=== PATIENT | female | born 2000 | race Caucasian/White ===

== ENCOUNTER 2019-02-26 21:43 | Emergency (ER) | payer BC, OTHER ==
[~2019-02-26] VITALS: Ht 167.7 cm; Wt 68.2 kg
--- NOTE | 2019-02-26 22:27 | ED Abdominal Pain ---
General Chief Complaint: Abdominal/GI Problems Stated Complaint: CONSTIPATION Nursing Triage Note: Pt amb to room #5 with c/o lower abd cramping, constipation, nausea, and chills. Pt reports she has not passed adequate bowel movement since 02/23/19. Pt reports to be taking stool softners with no relief. Source of Information: Patient Exam Limitations: No Limitations History of Present Illness Date Seen by Provider: Feb 26, 2019 Time Seen by Provider: 22:10 Initial Comments Patient presents to ER by private conveyance with 1-2 days of progressively worsening cramping, colicky abdominal pain all over. She's not having any dysuria fever or nausea or diarrhea. She does have constipation with her last bowel movement being about 3 days ago. She has chronic constipation and is felt the need to go for the past couple days but despite her Colace and stimulant laxative she has been unsuccessful. She takes Colace and stimulant laxative daily. She has a history of what sounds like herbal bowel disease. She colonoscopy a year ago because she was having some blood in her stool and she said they found nothing. She has had hemorrhoids and anal fissures as well. She's not having any pain in her rectum at this time just feeling of needing to go. No fevers but she's had some chills she says. No abdominal surgeries. Allergies and Home Medications Patient Home Medication List Home Medication List Reviewed: Yes Review of Systems Review of Systems Constitutional: chills; No diaphoresis, No fever Respiratory: Denies Cough, Denies Shortness of Air Cardiovascular: Denies Chest Pain, Denies Lightheadedness Gastrointestinal: See HPI, Abdomen Distended, Abdominal Pain, Constipated; Denies Diarrhea, Denies Nausea Genitourinary: Denies Burning, Denies Discharge Musculoskeletal: No back pain, No joint pain Psychiatric/Neurological: Denies Anxiety, Denies Depressed All Other Systems Reviewed Negative Unless Noted: Yes Past Julzavk-Zfxhod-Ctvxgl Hx Patient Social History Alcohol Use: Denies Use Recreational Drug Use: No Smoking Status: Never a Smoker Recent Foreign Travel: No Contact w/Someone Who Travel: No Recent Infectious Disease Expo: No Recent Hopitalizations: No Past Medical History Surgeries: Yes (Colonoscopy) Respiratory: No Cardiac: No Neurological: No Genitourinary: No Gastrointestinal: Yes Chronic Constipation Musculoskeletal: No HEENT: No Cancer: No Psychosocial: No Integumentary: No Blood Disorders: No Physical Exam Vital Signs Vital Signs - First Documented 02/26/19 22:00 Temp 36.8 Pulse 87 Resp 17 B/P (MAP) 141/101 O2 Delivery Room Air Capillary Refill : Height/Weight/BMI Height: '" Weight: lbs. oz. kg; 24.00 BMI Method: General Appearance: WD/WN, no apparent distress HEENT: PERRL/EOMI Neck: full range of motion, normal inspection Respiratory: lungs clear, normal breath sounds, no respiratory distress, no accessory muscle use Cardiovascular: normal peripheral pulses, regular rate, rhythm Gastrointestinal: normal bowel sounds, soft, tenderness (mild tenderness to palpation all 4 quadrants), other (negative for mesenteric signs, psoas sign, Rovsing sign, McBurney's point rebound tenderness or Hinson sign) Neurologic/Psychiatric: alert, normal mood/affect, oriented x 3 Skin: normal color, warm/dry Progress/Results/Core Measures Results/Orders Vital Signs/I&O 02/26/19 22:00 Temp 36.8 Pulse 87 Resp 17 B/P (MAP) 141/101 O2 Delivery Room Air Progress Progress Note : Time: 22:23 Progress Note Aseptic vital signs and a benign abdominal exam. We have offered to do labs versus outpatient trial of MiraLAX and enemas and she would prefer the latter. We've given her return precautions. Answered questions and discussed not using stimulant laxatives for daily use. Departure Impression Primary Impression: Obstipation Disposition: 01 HOME, SELF-CARE Condition: Stable Departure-Patient Inst. Decision time for Depature: 22:24 Referrals: NO,LOCAL PHYSICIAN (PCP/Family) Primary Care Physician Patient Instructions: Constipation, Adult (DC) Add. Discharge Instructions: Tylenol 1000 g every 8 hours as needed for pain. Ibuprofen 800 mg every 8 hours as needed for pain. Heating pads can also be helpful for pain. Start taking MiraLAX 1 capful mixed in 6-8 ounces of fluid 1-3 times a day. supervisor counseling and guidance a Fleet enema and start taking it once or twice daily. You may continue using your Colace and other laxatives. For daily use you should use Colace once or twice a day but do not use any stimulant laxatives daily or this can worsen your constipation. Ondansetron one tablet every 6 hours under the tongue as needed for nausea which can sometimes be associated with constipation. Please follow-up with your primary care doctor for further evaluation and management of what I suspect is irritable bowel syndrome. Return to the nearest ER if you begin to have intractable abdominal pain, nausea or other worrisome symptoms such as a fever. All discharge instructions reviewed with patient and/or family. Voiced understanding. Scripts Na Phos,M-B/Na Phos,Di-Ba (Fleet Enema) 133 Ml Enema 133 ML RC DAILY PRN PRN for CONSTIPATION-2ND LINE, #3 EA 0 Refills Prov: LUTHER CARROLL 02/26/19 Polyethylene Glycol 3350 (Miralax) 17 Gm Powd.pack 17 GM PO BID PRN PRN for CONSTIPATION-1ST LINE, #1 EACH 0 Refills Prov: LUTHER CARROLL 02/26/19 Ondansetron (Ondansetron Odt) 4 Mg Tab.rapdis 4 MG PO Q6H PRN for NAUSEA/VOMITING, #8 TAB 0 Refills Prov: LUTHER CARROLL 02/26/19 Work/School Note: School/Childcare Release Date Seen in the Emergency Department: Feb 26, 2019 Time Dismissed from Emergency Department: 22:29 Return to School: Feb 28, 2019 Restrictions: No Restrictions LUTHER CARROLL Feb 26, 2019 22:27 POS
[2019-02-26] MEDS ORDERED: NA P133E22 RC (22:28)
[2019-02-26] MEDS ORDERED: POLY17PO6 PO (22:28)
[2019-02-26] MEDS ORDERED: ONDA4TAB11 PO (22:28)
== END 2019-02-26 22:34 | disposition home or self-care (01) ==
LOC: ER 21:46
DX: K59.00 Constipation, unspecified (principal)
CPT/HCPCS: 99282